=== PATIENT | female | born 1995 | race African-American/Black ===

== ENCOUNTER 2023-04-14 16:11 | Emergency (ER) | payer MEDICAID, SELFPAY ==
[2023-04-14 16:15] VITALS: BP 116/70; PULSE 68; RESP 16; TEMP 37; O2SAT 96
--- NOTE | 2023-04-14 17:03 | ED.GENADUL_ITS ---
Discharge Plan Disposition Patient Disposition: Home Condition: Stable Discharge Details Clinical Impression: Cellulitis of left leg Primary Care Provider: José Miguel Alfaro ED Provider: Torito Segundo Home Meds and New Rx's Prescriptions: New clindamycin HCl 150 mg capsule 450 mg PO TID 7 Days Qty: 63 0RF Discharge Instructions Instructions: Cellulitis (ED) Additional Instructions: if not better within a week follow up with your primary care provider if you have severe worsening pain, feel more ill, or increased in swelling or fevers return to the emergency department Medical Decision Making 28 yo female with no chronic medical problems comes in with cc of left leg redness. She noticed a lump in the left distal medial thigh 2 days ago and has become more painful and swollen, no fevers, no chills, otherwise feels well. She has an area of erythema approximately 3cm in diameter with a white pustule in the middle. no crepitus or severe pain it is warm to touch, no significant fluctuance. On bedside u/s there is no drainable abscess, does appear to have cobblestoning. Findings consistent with cellulitis and no abscess presently. Will start on clindamycin due to her pcn allergy. discussed if worsening to return to be evaluated again for possible abscess and need for I and D. Differential Diagnosis Differential Diagnosis: abscess, cellulitis HPI General Mode of arrival: ambulatory . Date/Time Provider Initiated Documentation: 04/14/23 16:18 . Limitations to Documentation: no limitations . Information obtained by: patient . History of Present Illness 28 year old F presents to the emergency department with the chief complaint of left leg lesion , described as mild, Patient started experiencing this day(s) (2) and it has been constant. No relieving factors improve symptom(s), No exacerbating factors reported . Patient notes no other symptoms.. Patient did receive the following treatments prior to arrival, none Related Data Home Medications Medication Instructions Recorded Confirmed clindamycin HCl 150 mg capsule 450 mg PO TID 7 days #63 caps 04/14/23 Previous Rx's Medication Instructions Recorded clindamycin HCl 150 mg capsule 450 mg PO TID 7 days #63 caps 04/14/23 Allergies Allergy/AdvReac Type Severity Reaction Status Date / Time amoxicillin Allergy Hives Unverified 04/14/23 16:19 General Stated Complaint: Cellulitis ISSA: 4 Review of Systems All systems reviewed & are unremarkable except as noted in HPI and below Constitutional Constitutional: Denies chills, Denies fever(s) and Denies weakness Cardiovascular Cardiovascular: Denies chest pain and Denies dyspnea Respiratory Respiratory: Denies cough and Denies dyspnea Gastrointestinal Gastrointestinal: Denies abdominal pain, Denies nausea and Denies vomiting Neurologic Neurologic: Denies weakness PFSH All Active Problems (Updated 04/14/23 @ 17:09 by Torito Segundo MD) Cellulitis of left leg (Acute) Social History Smoking/Tobacco Use Status: Never Smoking risk assessment performed?: Yes Alcohol Intake: never Drug use: Never Substance use type: does not use Housing: house Do you feel safe at home: Yes Do you feel safe in your relationship?: Yes Exam Const General: no acute distress Orientation: alert HENMT Head: normal to inspection Ears: external ears normal General nose exam: external nose normal Mouth: moist mucous membranes Eyes General: appearance normal, both eyes and all related structures Neck Neck: normal visual inspection Resp Effort & Inspection: normal respiratory effort and able to speak in complete sentences Cardio Rate: regular rate Skin General skin exam: elasticity normal Neuro General: patient alert and patient oriented x3 Extrem General: normal to inspection Psych Mental Status: mental status grossly normal Course Vital Signs Vital signs: Vital Signs Temperature 37.0 C 04/14/23 16:15 Pulse 38 L 04/14/23 16:15 Respiratory Rate 16 04/14/23 16:15 Blood Pressure 116/70 04/14/23 16:15 Pulse Oximetry 96 04/14/23 16:15 Temperature 37.0 C 04/14/23 16:15 Temperature Source Oral 04/14/23 16:15 Pulse 38 L 04/14/23 16:15 Respiratory Rate 16 04/14/23 16:15 Respiratory Effort Normal, Non-Labored 04/14/23 16:19 Blood Pressure 116/70 04/14/23 16:15 Blood Pressure Position Sitting 04/14/23 16:15 Pulse Oximetry 96 04/14/23 16:15 Oxygen Delivery Method Room Air 04/14/23 16:15 Oxygen Flow Rate 0 04/14/23 16:15 Pain Level 7 04/14/23 16:15
== END 2023-04-14 17:17 | disposition home or self-care (01) ==
PROVIDERS: Emergency Provider Emergency Medicine; PCP Nurse Practitioner Family
DX: L03.116 Cellulitis of left lower limb (principal)
CPT/HCPCS: 99284